=== PATIENT | female | born 1935 | race Caucasian/White ===

== ENCOUNTER 2018-05-28 09:50 | Day surgery (SDC) | payer MEDICARE, OTHER ==
[~2018-05-28 09:50] MED LIST: AMLO10TA PO; ASPI-1265 PO; ATOR10TA PO; CALC1TAB PO; CHOL10002 PO; LACT1CAP67 PO; LOSA1TAB41 PO; ROPI1TAB2 PO; [UNRECOGNIZED DRUG - CODE] PO
[2018-05-28] MEDS ORDERED: OMEP20TA23 PO (10:58)
[2018-05-28] MEDS ORDERED: MULT-933 PO (10:58)
[2018-05-28] MEDS ORDERED: FLUT1BLS3 (10:58)
[2018-05-28] MEDS ORDERED: LIDOcaine/PRILOcaine 5gm cream TP ONE (11:06)
== END 2018-05-28 11:40 | disposition home or self-care (01) ==
LOC: WOUND CARE 09:50
PROVIDERS: ATTEND Surgery
DX: T81.31XA Disruption of external operation (surgical) wound, not elsewhere classified, initial encounter (principal); L97.821 Non-pressure chronic ulcer of other part of left lower leg limited to breakdown of skin; I10 Essential (primary) hypertension; G89.29 Other chronic pain; Z79.82 Long term (current) use of aspirin; Z79.899 Other long term (current) drug therapy; Y83.8 Other surgical procedures as the cause of abnormal reaction of the patient, or of later complication, without mention of misadventure at the time of the procedure
CPT/HCPCS: 11042; A6021; A6206; A6446

== ENCOUNTER 2018-06-04 08:15 | Day surgery (SDC) | payer MEDICARE, OTHER ==
[~2018-06-04 08:15] MED LIST changes: +FLUT1BLS3; +MULT-933 PO; +OMEP20TA23 PO
[2018-06-04] MEDS ORDERED: LIDOcaine/PRILOcaine 5gm cream TP ONE (09:46)
== END 2018-06-04 10:21 | disposition home or self-care (01) ==
LOC: WOUND CARE 08:15
PROVIDERS: ATTEND Surgery
DX: T81.31XD Disruption of external operation (surgical) wound, not elsewhere classified, subsequent encounter (principal); L97.821 Non-pressure chronic ulcer of other part of left lower leg limited to breakdown of skin; I10 Essential (primary) hypertension; G89.29 Other chronic pain; Z79.82 Long term (current) use of aspirin; Z79.899 Other long term (current) drug therapy; Y83.8 Other surgical procedures as the cause of abnormal reaction of the patient, or of later complication, without mention of misadventure at the time of the procedure
CPT/HCPCS: 97597; A6021; A6206

== ENCOUNTER 2018-06-11 08:15 | Day surgery (SDC) | payer MEDICARE, OTHER ==
[2018-06-11] MEDS ORDERED: LIDOcaine/PRILOcaine 5gm cream TP ONE (09:41)
== END 2018-06-11 10:29 | disposition home or self-care (01) ==
LOC: WOUND CARE 08:15
PROVIDERS: ATTEND Surgery
DX: T81.31XD Disruption of external operation (surgical) wound, not elsewhere classified, subsequent encounter (principal); L97.821 Non-pressure chronic ulcer of other part of left lower leg limited to breakdown of skin; I10 Essential (primary) hypertension; G89.29 Other chronic pain; Z79.82 Long term (current) use of aspirin; Z79.899 Other long term (current) drug therapy; Y83.8 Other surgical procedures as the cause of abnormal reaction of the patient, or of later complication, without mention of misadventure at the time of the procedure
CPT/HCPCS: 15271; A6209; Q4133; A6250; A6446

== ENCOUNTER 2018-06-18 08:15 | Day surgery (SDC) | payer MEDICARE, OTHER ==
[2018-06-18] MEDS ORDERED: LIDOcaine/PRILOcaine 5gm cream TP ONE (09:56)
== END 2018-06-18 10:41 | disposition home or self-care (01) ==
LOC: WOUND CARE 08:15
PROVIDERS: ATTEND Surgery
DX: T81.31XD Disruption of external operation (surgical) wound, not elsewhere classified, subsequent encounter (principal); L97.821 Non-pressure chronic ulcer of other part of left lower leg limited to breakdown of skin; I10 Essential (primary) hypertension; G89.29 Other chronic pain; Z79.82 Long term (current) use of aspirin; Z79.899 Other long term (current) drug therapy; Y83.8 Other surgical procedures as the cause of abnormal reaction of the patient, or of later complication, without mention of misadventure at the time of the procedure
CPT/HCPCS: 97597; A6021; A6206

== ENCOUNTER 2018-06-25 07:55 | Day surgery (SDC) | payer MEDICARE, OTHER ==
[2018-06-25] MEDS ORDERED: LIDOcaine/PRILOcaine 5gm cream TP ONE ×2 (09:38→09:42)
== END 2018-06-25 10:11 | disposition home or self-care (01) ==
LOC: WOUND CARE 07:55 → EDSTATUS 08:00 → WOUND CARE 10:11
PROVIDERS: ATTEND Surgery
DX: T81.31XD Disruption of external operation (surgical) wound, not elsewhere classified, subsequent encounter (principal); L97.821 Non-pressure chronic ulcer of other part of left lower leg limited to breakdown of skin; I10 Essential (primary) hypertension; G89.29 Other chronic pain; M54.9 Dorsalgia, unspecified; J45.909 Unspecified asthma, uncomplicated; K21.9 Gastro-esophageal reflux disease without esophagitis; Z79.82 Long term (current) use of aspirin; Z79.899 Other long term (current) drug therapy; Z87.440 Personal history of urinary (tract) infections; Y83.8 Other surgical procedures as the cause of abnormal reaction of the patient, or of later complication, without mention of misadventure at the time of the procedure
CPT/HCPCS: A6209; A6222; C5271; Q4102; A6250; A6446

== ENCOUNTER 2018-07-01 07:55 | Day surgery (SDC) | payer MEDICARE, OTHER ==
[2018-07-01] MEDS ORDERED: LIDOcaine/PRILOcaine 5gm cream TP ONE (09:38)
== END 2018-07-01 10:11 | disposition home or self-care (01) ==
LOC: WOUND CARE 07:55
PROVIDERS: ATTEND Surgery
DX: T81.31XD Disruption of external operation (surgical) wound, not elsewhere classified, subsequent encounter (principal); L97.821 Non-pressure chronic ulcer of other part of left lower leg limited to breakdown of skin; I10 Essential (primary) hypertension; G89.29 Other chronic pain; M54.9 Dorsalgia, unspecified; J45.909 Unspecified asthma, uncomplicated; K21.9 Gastro-esophageal reflux disease without esophagitis; Z79.82 Long term (current) use of aspirin; Z79.899 Other long term (current) drug therapy; Z87.440 Personal history of urinary (tract) infections; Y83.8 Other surgical procedures as the cause of abnormal reaction of the patient, or of later complication, without mention of misadventure at the time of the procedure
CPT/HCPCS: 97597; A6021; A6206; A6212

== ENCOUNTER 2018-07-09 08:00 | Day surgery (SDC) | payer MEDICARE, OTHER ==
[2018-07-09] MEDS ORDERED: LIDOcaine/PRILOcaine 5gm cream TP ONE (09:48)
== END 2018-07-09 10:30 | disposition home or self-care (01) ==
LOC: WOUND CARE 08:00
PROVIDERS: ATTEND Surgery
DX: T81.31XD Disruption of external operation (surgical) wound, not elsewhere classified, subsequent encounter (principal); L97.821 Non-pressure chronic ulcer of other part of left lower leg limited to breakdown of skin; I10 Essential (primary) hypertension; G89.29 Other chronic pain; M54.9 Dorsalgia, unspecified; J45.909 Unspecified asthma, uncomplicated; K21.9 Gastro-esophageal reflux disease without esophagitis; Z79.82 Long term (current) use of aspirin; Z79.899 Other long term (current) drug therapy; Z87.440 Personal history of urinary (tract) infections; Y83.8 Other surgical procedures as the cause of abnormal reaction of the patient, or of later complication, without mention of misadventure at the time of the procedure
CPT/HCPCS: 15271; A6209; A6222; Q4131; A6250

== ENCOUNTER 2018-07-16 08:00 | Day surgery (SDC) | payer MEDICARE, OTHER ==
[2018-07-16] MEDS ORDERED: LIDOcaine/PRILOcaine 5gm cream TP ONE (09:34)
== END 2018-07-16 10:18 | disposition home or self-care (01) ==
LOC: WOUND CARE 08:00
PROVIDERS: ATTEND Surgery
DX: L97.821 Non-pressure chronic ulcer of other part of left lower leg limited to breakdown of skin (principal); I10 Essential (primary) hypertension; G89.29 Other chronic pain; M54.9 Dorsalgia, unspecified; J45.909 Unspecified asthma, uncomplicated; K21.9 Gastro-esophageal reflux disease without esophagitis; Z79.82 Long term (current) use of aspirin; Z79.899 Other long term (current) drug therapy; Z87.440 Personal history of urinary (tract) infections
CPT/HCPCS: 15271; 93971; A6209; A6222; Q4131; A6213; A6250

== ENCOUNTER 2018-07-22 08:00 | Outpatient (CLI) | payer MEDICARE, OTHER | END 2018-07-22 08:54 | disposition home or self-care (01) | LOC: WOUND CARE 08:00 → EDSTATUS 08:00 → WOUND CARE 08:54 | PROVIDERS: ATTEND Surgery | DX: L97.821 Non-pressure chronic ulcer of other part of left lower leg limited to breakdown of skin (principal); I10 Essential (primary) hypertension; G89.29 Other chronic pain; M54.9 Dorsalgia, unspecified; J45.909 Unspecified asthma, uncomplicated; K21.9 Gastro-esophageal reflux disease without esophagitis; Z79.82 Long term (current) use of aspirin; Z79.899 Other long term (current) drug therapy; Z87.440 Personal history of urinary (tract) infections | CPT/HCPCS: 99211; A6212 ==

== ENCOUNTER 2018-07-30 08:00 | Day surgery (SDC) | payer MEDICARE, OTHER ==
[2018-07-30] MEDS ORDERED: LIDOcaine/PRILOcaine 5gm cream TP ONE (09:46)
== END 2018-07-30 10:21 | disposition home or self-care (01) ==
LOC: WOUND CARE 08:00
PROVIDERS: ATTEND Surgery
DX: L97.821 Non-pressure chronic ulcer of other part of left lower leg limited to breakdown of skin (principal); I10 Essential (primary) hypertension; G89.29 Other chronic pain; M54.9 Dorsalgia, unspecified; J45.909 Unspecified asthma, uncomplicated; K21.9 Gastro-esophageal reflux disease without esophagitis; Z79.82 Long term (current) use of aspirin; Z79.899 Other long term (current) drug therapy; Z87.440 Personal history of urinary (tract) infections
CPT/HCPCS: 15271; A6209; A6222; Q4131; A6250; A6446

== ENCOUNTER 2018-08-13 07:55 | Outpatient (CLI) | payer MEDICARE, OTHER ==
--- NOTE | 2018-08-13 10:00 | NUR ---
Patient ambulated independently from [facility] accompanied by her and was admitted to outpatient wound care for physician visit with Kodak Gibbs MD. Dressing removed, wound cleansed. Patient assessed for changes in conditions, medications and medical history. 0945 - Dr. Gibbs at bedside accompanied by RN. Wound assessed by and is declared healed. Patient is discharged from the wound clinic to follow up on an as needed basis. Plan of care discussed with patient. Dressings placed per MD orders. Patient instructed on the signs and symptoms of infection and to call the Wound Center if any occur or to go to the ED if we are closed: Increased pain in wound Increase in drainage from the wound Redness in the skin surrounding the wound Bleeding from the wound Temperature of 101 or greater Patient instructed that the weight of their body puts a large amount of pressure on their wounds. This pressure keeps the new tissue from growing and inhibits new blood vessels from forming. Explained that, if they continue to bear weight on a body part that has a wound, the time it takes to heal the wound increases, the wound may get worse or the wound may not heal at all. Patient verbalized understanding of all discharge instructions and plan of care and ambulated independently out to [facility] accompanied by her in stable condition with no sign or symptom of distress at time of discharge.
== END 2018-08-13 10:15 | disposition home or self-care (01) ==
LOC: WOUND CARE 07:55 → EDSTATUS 08:00 → WOUND CARE 10:15
PROVIDERS: ATTEND Surgery
DX: L97.821 Non-pressure chronic ulcer of other part of left lower leg limited to breakdown of skin (principal); I10 Essential (primary) hypertension; G89.29 Other chronic pain; M54.9 Dorsalgia, unspecified; J45.909 Unspecified asthma, uncomplicated; K21.9 Gastro-esophageal reflux disease without esophagitis; Z79.82 Long term (current) use of aspirin; Z79.899 Other long term (current) drug therapy; Z87.440 Personal history of urinary (tract) infections
CPT/HCPCS: A6212; G0463

== ENCOUNTER 2019-04-08 14:56 | Outpatient (CLI) | payer MEDICARE, OTHER | END 2019-04-08 23:59 | disposition home or self-care (01) | LOC: RAD 14:56 | PROVIDERS: ATTEND Family Medicine | DX: M79.605 Pain in left leg (principal); R60.0 Localized edema; I10 Essential (primary) hypertension; J44.9 Chronic obstructive pulmonary disease, unspecified; Z87.891 Personal history of nicotine dependence | CPT/HCPCS: 93971 ==

== ENCOUNTER 2019-12-23 08:54 | Outpatient (CLI) | payer MEDICARE, OTHER ==
[~2019-12-23] VITALS: Ht 158.8 cm; Wt 76.2 kg
[2019-12-23] MEDS ORDERED: albuterol 2.5 MG/3 ML nebule NEB ONE (09:35)
== END 2019-12-23 23:59 | disposition home or self-care (01) ==
LOC: RT 08:54
PROVIDERS: ATTEND Family Medicine
DX: J45.909 Unspecified asthma, uncomplicated (principal); F17.210 Nicotine dependence, cigarettes, uncomplicated; Z79.899 Other long term (current) drug therapy
CPT/HCPCS: 94010; 94727; 94729